=== PATIENT | male | born 1945 | race Caucasian/White ===

== ENCOUNTER 2020-05-31 10:57 | Day surgery (SDC) | payer MEDICARE, OTHER ==
[2020-05-30 11:37] LABS: BASOPHILS % (AUTO) 0.2 % (0-1); HEMATOCRIT 39.7 % (42.0-52.0); LYMPHOCYTES % (AUTO) 42.1 % (21-51); MEAN CORPUSCULAR HEMOGLOBIN 33.1 PG (27.0-31.0); MEAN CORPUSCULAR HGB CONC 32.9 g/dL (33.0-36.5); MEAN CORPUSCULAR VOLUME 100.8 FL (78-98); MEAN PLATELET VOLUME 9.6 FL (7.4-10.4); MONOCYTES # (AUTO) 0.3 X10'3 (0-0.9); MONOCYTES % (AUTO) 7.1 % (2-12); NEUTROPHILS # (AUTO) 2.4 X10'3 (1.8-7.7); NEUTROPHILS % (AUTO) 49.6 % (42-75); PLATELET COUNT 68 X10'3 (140-440); RED BLOOD COUNT 3.94 X10'6 (4.70-6.10); RED CELL DISTRIBUTION WIDTH 15.7 % (11.5-14.5); WHITE BLOOD COUNT 4.8 X10'3 (4.5-11.0)
[2020-05-30 11:43] LABS: ALBUMIN 3.3 G/DL (3.4-5.0); ANION GAP 11 (8-16); BLOOD UREA NITROGEN 18 MG/DL (7-18); CALCIUM 8.9 MG/DL (8.5-10.1); CHLORIDE 108 MMOL/L (99-107); CREATININE 1.29 MG/DL (0.60-1.10); GLUCOSE 256 MG/DL (70-104); POTASSIUM 4.2 MMOL/L (3.5-5.1); SODIUM 141 MMOL/L (135-145); TOTAL CARBON DIOXIDE 22.4 MMOL/L (24-32); eGFR 55 ML/MIN
[2020-05-30 11:47] LABS: PARTIAL THROMBOPLASTIN TIME 27 SECONDS (22-32)
[~2020-05-31] VITALS: Ht 182.9 cm; Wt 96.9 kg
[2020-05-31] VITALS (10 sets, daily range): BP systolic 135–165; BP diastolic 76–97
[2020-05-31] MEDS ORDERED: GLIM2TAB6 PO (11:17)
[2020-05-31] MEDS ORDERED: ALLO300T8 PO (11:17)
[2020-05-31] MEDS ORDERED: LISI10TA4 PO (11:17)
[2020-05-31] MEDS ORDERED: CYAN10007 IM (11:17)
[2020-05-31] MEDS ORDERED: TRAZ-251 PO (11:17)
[2020-05-31] MEDS ORDERED: SEMA7TAB PO (11:17)
[2020-05-31] MEDS ORDERED: GABA300T25 PO (11:17)
[2020-05-31] MEDS ORDERED: CHOL231P PO (11:17)
[2020-05-31] MEDS ORDERED: METF-950 PO (11:17)
[2020-05-31] MEDS ORDERED: AMLO10TA13 PO (11:17)
[2020-05-31] MEDS ORDERED: IBUP-24 PO (11:19)
[2020-05-31] MEDS ORDERED: MAGN100T6 PO (11:19)
[2020-05-31] MEDS ORDERED: LORazepam 0.5 MG tablet PO PRN (11:20)
[2020-05-31] MEDS ORDERED: ACET-890 PO (11:20)
[2020-05-31] MEDS ORDERED: diphenhydrAMINE 25mg capsule PO PRN (11:20)
[2020-05-31] MEDS ORDERED: normal saline 1,000 ML IV SCH (11:20)
[2020-05-31] MEDS ORDERED: fentaNYL/PF 50MCG/1 ML 2ML syringe ONE (11:27)
[2020-05-31] MEDS ORDERED: midazolam 2 mg/2 ml injection ONE (11:27)
[2020-05-31] MEDS ORDERED: iohexol 350 MG/ML 50ML vial IV ONE (11:27)
[2020-05-31] MEDS ORDERED: nitroGLYCERIN-Tridil 50MG/D5W 250 ML IV ONE (11:27)
[2020-05-31] MEDS ORDERED: iohexol 350MG/ML 100ml bottle IV ONE (11:27)
[2020-05-31] MEDS ORDERED: verapamil 2.5 mg/ml inj IV ONE (11:27)
[2020-05-31] MEDS ORDERED: heparin 1,000unit/ml 10ml vial 10 ML ONE (11:27)
[2020-05-31] MEDS ORDERED: LIDOcaine 1% (10mg/ml)w/preservative injection 20ml MDV ONE (11:27)
[2020-05-31] MEDS ORDERED: LIDOcaine/PRILOcaine 5gm cream TP ONE (11:45)
[2020-05-31 12:41] LABS: ISTAT HGB ART 13.6 g/dl (14.0-18.0); ISTAT Hct ART 40 %PCV (42-52); ISTAT O2 SATURATION ARTERIAL 93 % (95-98); ISTAT SOURCE ART
[2020-05-31] MEDS ORDERED: HYDROcodone/acetaminophen 10/325mg tab PO PRN (13:25)
[2020-05-31] MEDS ORDERED: HYDROcodone/acetaminophen 5mg/325mg tablet PO PRN (13:25)
== END 2020-05-31 17:00 | disposition home or self-care (01) ==
LOC: SSTAY O 10:57
PROVIDERS: ATTEND Internal Medicine Cardiovascular Disease
DX: R94.39 Abnormal result of other cardiovascular function study (principal); R06.02 Shortness of breath; R53.83 Other fatigue; I25.10 Atherosclerotic heart disease of native coronary artery without angina pectoris; E11.9 Type 2 diabetes mellitus without complications; E78.5 Hyperlipidemia, unspecified; G62.9 Polyneuropathy, unspecified; G25.81 Restless legs syndrome; I10 Essential (primary) hypertension; N40.0 Benign prostatic hyperplasia without lower urinary tract symptoms; Z79.84 Long term (current) use of oral hypoglycemic drugs; Z79.899 Other long term (current) drug therapy; Z85.828 Personal history of other malignant neoplasm of skin; Z81.8 Family history of other mental and behavioral disorders; Z86.73 Personal history of transient ischemic attack (TIA), and cerebral infarction without residual deficits
CPT/HCPCS: 36415; 76937; 80048; 82803; 82948; 85014; 85025; 85610; 85730; 93005; 93460; 99152; 99153; C1769; C1894; J1644; J2001; J2250; J3010; J7030; Q0163; Q9967; A4620; A5120; A6258; C1751; J3490